=== PATIENT | male | born 1980 | race African-American/Black ===

== ENCOUNTER 2019-04-21 17:52 | Emergency (ER) | payer OTHER ==
[~2019-04-21] VITALS: Ht 170.2 cm; Wt 68.0 kg
[2019-04-21 19:30] VITALS: BP 119/72; TEMP 98.4
== END 2019-04-21 19:30 | disposition home or self-care (01) ==
LOC: ED 17:52
DX: H04.302 Unspecified dacryocystitis of left lacrimal passage (principal)
CPT/HCPCS: 99283